=== PATIENT | male | born 1960 | race Caucasian/White ===

== ENCOUNTER 2017-06-21 11:15 | Inpatient (IN) | payer OTHER ==
[2017-06-21] VITALS (16 sets, daily range): BP systolic 133–159; BP diastolic 80–97
[~2017-06-21] VITALS: Ht 165.1 cm; Wt 81.7 kg
[~2017-06-21 11:15] MED LIST: VICODIN 5/500 T1 TAB PO
[2017-06-21] MEDS ORDERED: PANTOPRAZOLE SO40 M1 PO (11:25)
[2017-06-21] MEDS ORDERED: VALSARTAN320 MG PO (11:25)
[2017-06-21] MEDS ORDERED: METOPROLOL SUC100 M2 PO (11:25)
[2017-06-21] MEDS ORDERED: RANITIDINE HCL300 M1 PO (11:25)
[2017-06-21 11:35] LABS: URINE BILIRUBIN - DIPSTICK NEGATIVE (NEG); URINE BLOOD NEGATIVE (NEG)
[2017-06-21 11:38] LABS: HEMOGLOBIN 15.1 g/dL (14.1-18.0); LYMPH # 1.4 K/mm3 (0.7-4.5); LYMPH % 9.4 % (10-50)
--- OUTSIDE RECORDS SUMMARY | 2017-06-21 12:06 | External Medical Summary Rpt | CCD ---
Demographics Preferred Language Honduran Marital Status Unknown Buddhist Affiliation Unknown Race Unknown Ethnic Group Unknown Author Author , JOSH MAKI Address Unknown Phone Immunization No patient found.
--- OUTSIDE RECORDS SUMMARY | 2017-06-21 12:06 | External Medical Summary Rpt ---
Author Author [facility] Geronimo, [employer] Address Unknown Phone Unavailable Results Amylase [Enzymatic activity/volume] in Serum or Plasma Observa Value Referen Units Interpr Notes Date tion ce etation Range Amylase 25 - 115 U/L Normal No Jun 21 [Enzymati informati 2017 c on in 11:25 AM activity/ source volume] data in Serum or Plasma Comprehensive metabolic 2000 panel in Serum or Plasma Observa Value Referen Units Interpr Notes Date tion ce etation Range Albumin/G 1.1 - 1.8 No Low No Jun 21 lobulin informati informati 2017 [Mass on in on in 11:25 AM ratio] in source source Serum or data data Plasma Albumin 3.4 - 5.0 gm/dL Normal No Jun 21 [Mass/vol informati 2016 ume] in on in 11:25 AM Serum or source Plasma data Alkaline 46 - 116 U/L Normal No Jun 21 phosphata informati 2017 se on in 11:25 AM [Enzymati source c data activity/ volume] in Serum or Plasma Bilirubin 0.2 - 1.0 mg/dL High No Jun 21 .total informati 2016 [Mass/vol on in 11:25 AM ume] in source Serum or data Plasma Urea 7 - 18 mg/dL Normal No Jun 21 nitrogen informati 2016 [Mass/vol on in 11:25 AM ume] in source Serum or data Plasma Calcium 8.5 - mg/dL Normal No Jun 21 [Mass/vol 10.1 informati 2016 ume] in on in 11:25 AM Serum or source Plasma data Chloride 98 - 107 mmoL/L Normal No Jun 21 [Moles/vo informati 2017 lume] in on in 11:25 AM Serum or source Plasma data Carbon 21.0 - mmoL/L Normal No Jun 21 dioxide, 32.0 informati 2016 total on in 11:25 AM [Moles/vo source lume] in data Serum or Plasma Creatinin 0.70 - mg/dL Normal No Jun 21 e 1.30 informati 2017 [Mass/vol on in 11:25 AM ume] in source Serum or data Plasma Creatinin 50 - 200 ML/MIN Normal No Jun 21 e renal inform2016 clearance on in 11:25 AM source predicted data by Cockcroft -Gault formula Estimated >60 ML/MIN No REFERENCE Jun 21 informati RANGE: 2017 glomerula on in >60 11:25 AM r source ML/MIN/1. filtratio data 73 SQUARE n rate METERSIf (GF this patient is -A merican, then multiply theresult by 1.210. Globulin 1.3 - 3.2 gm/dL High No Jun 21 [Mass/vol informati 2016 ume] in on in 11:25 AM Serum source data Glucose 74 - 106 mg/dL High No Jun 21 [Mass/vol informati 2016 ume] in on in 11:25 AM Serum or source Plasma data Potassium 3.5 - 5.1 mmoL/L Normal No Jun [id number] [Moles/vo on in 11:25 AM lume] in source Serum or data Plasma Sodium 136 - 145 mmoL/L Normal No Jun 21 [Moles/vo informati 2016 lume] in on in 11:25 AM Serum or source Plasma data Aspartate 15 - 37 U/L Normal No Jun [id number] aminotran on in 11:25 AM sferase source [Enzymati data c activity/ volume] in Serum or Plasma Alanine 12 - 78 U/L Normal No Jun 21 aminotran inform2016 sferase on in 11:25 AM [Enzymati source c data activity/ volume] in Serum or Plasma Protein 6.4 - 8.2 gm/dL Normal No Jun 21 [Mass/vol informati 2016 ume] in on in 11:25 AM Serum or source Plasma data Lipase [Enzymatic activity/volume] in Serum or Plasma Observa Value Referen Units Interpr Notes Date tion ce etation Range Lipase 73 - 393 U/L Normal No Jun 21 [Enzymati informati 2016 c on in 11:25 AM activity/ source volume] data in Serum or Plasma CBC W Auto Differential panel in Blood Observa Value Referen Units Interpr Notes Date tion ce etation Range Basophils 0 - 0.2 K/MM3 Normal No Jun 21 inform2016 [#/volume on in 11:25 AM ] in source Blood by data Automated count Basophils 0.1 - 2.0 % Normal No Jun [id number] leukocyte on in 11:25 AM s in source Blood by data Automated count Eosinophi 0.0 - 0.4 K/mm3 Normal No Jun 21 ls informati 2016 [#/volume on in 11:25 AM ] in source Blood by data Automated count Eosinophi 0.1 - % Normal No Jun 21 ls/100 12.0 inform2016 leukocyte on in 11:25 AM s in source Blood by data Automated count Granulocy 1.3 - 8.0 K/mm3 High No Jun 21 yesy inform2016 [#/volume on in 11:25 AM ] in source Blood by data Automated count Granulocy 37.0 - % High No Jun 21 yesy/100 80.0 inform2016 leukocyte on in 11:25 AM s in source Blood by data Automated count Hematocri 42.0 - % Normal No Jun 21 t [Volume 52.0 informati 2016 on in 11:25 AM Fraction] source of Blood data Hemoglobi 14.1 - g/dL Normal No Jun 21 n 18.0 informati 2016 [Mass/vol on in 11:25 AM ume] in source Blood data Lymphocyt 0.7 - 4.5 K/mm3 Normal No Jun 21 es inform2016 [#/volume on in 11:25 AM ] in source Unspecifi data ed specimen by Automated count Lymphocyt 10 - 50 % Low No Jun 21 es 2016 [#/volume on in 11:25 AM ] in source Unspecifi data ed specimen by Automated count Erythrocy 27 - 31.2 pg High No Jun 21 te mean 2016 corpuscul on in 11:25 AM ar source hemoglobi data n [Entitic mass] Erythrocy 31.8 - g/dl Normal No Jun 21 te mean 35.4 2016 corpuscul on in 11:25 AM ar source hemoglobi data n concentra tion [Mass/vol ume] by Automated count Erythrocy 82.2 - fl Normal No Jun 21 te mean 97.8 2016 corpuscul on in 11:25 AM ar volume source [Entitic data volume] by Automated count Monocytes 0.1 - 1.0 K/mm3 High No Jun 21 inform2016 [#/volume on in 11:25 AM ] in source Blood by data Automated count Monocytes 1.7 - 9.3 % Normal No Oct 23 /100 informati 2016 leukocyte on in 11:25 AM s in source Blood by data Automated count Platelet 7.4 - fl Normal No Jun 21 mean 10.4 2016 volume on in 11:25 AM [Entitic source volume] data in Blood by Automated count Platelets 142 - 424 K/mm3 Normal No Jun 21 informati 2016 [#/volume on in 11:25 AM ] in source Blood data Erythrocy 4.6 - 6.2 M/mm3 Normal No Jun 21 yesy informati 2016 [#/volume on in 11:25 AM ] in source Amniotic data fluid Erythrocy 11.5 - % Normal No Jun 21 te 17.5 informati 2016 distribut on in 11:25 AM ion width source [Entitic data volume] by Automated count Leukocyte 4.8 - K/MM3 High No Jun 21 s 10.8 informati 2016 [#/volume on in 11:25 AM ] in source Blood data
--- OUTSIDE RECORDS SUMMARY | 2017-06-21 12:06 | External Medical Summary Rpt | CCD ---
Author Author JOSH Address Unknown Phone Purpose Continuity of Care Document - 06-21-2017 through 2016
--- OUTSIDE RECORDS SUMMARY | 2017-06-21 12:06 | External Medical Summary Rpt | CCD ---
Author Author [employer] Organization [employer] Address Unknown Phone Unavailable Purpose Continuity of Care Document - through 2016
--- OUTSIDE RECORDS SUMMARY | 2017-06-21 12:06 | External Medical Summary Rpt | CCD ---
Demographics Preferred Language [place] Citizen Marital Status Unknown Christian Affiliation Unknown Race Unknown Ethnic Group Unknown Author Author , JOSH MAKI Address Unknown Phone Immunization No patient found.
--- OUTSIDE RECORDS SUMMARY | 2017-06-21 12:06 | External Medical Summary Rpt | CCD ---
Author Author JOSH Address Unknown Phone [email or web address] Purpose Continuity of Care Document - 06-21-2017 through 2016
--- NOTE | 2017-06-21 12:07 | Emergency Room Report ---
History of Present Illness Time Seen by 1200 Presenting Problem in Triage Pt arrived:Walked Presenting Problem:PT C/O PAIN AROUND HIS UMBILICAL AREA THAT STARTED WEDNESDAY NIGHT. ALSO C/O N/V/D Onset of symptoms date/time:/ or onset unknown for:MEDICAL HX UNKNOWN Treatment Prior to Arrival: MATERIAL EXPEDITOR Provided by: Sepsis Risk Assessment: Temp: 98.2 B/P: 159/97 MAP: 117 Pulse: 86 Resp: 16 Recent fever? N Clinical Suspician of Infection? N Mental Status: 1 - Regular (Normal Baseline) Sepsis Risk:Low Sepsis Risk Have you (or family members/close friends) recently traveled outside the [place]? N If Yes, where/when: Have you had exposure to infectious disease within the past month? N TB? Other? Specify: Periumbilical pain and diminished appetite with vomiting and loose stools for two days, no fever, no blood from above or below, no urinary sx; hx calculi but pain different and now localized to RLQ with exquisite tenderness. Not diabetic. No prior surgeries. Last meal was crackers last night, coffee early this AM. ALLERGIES Coded Allergies: No Known Allergies (06/21/17) Home Medications Reported Medications Metoprolol Succinate (Metoprolol Succinate XL) 100 MG PO DAILY #30 Valsartan 320 MG PO DAILY #30 Pantoprazole Sodium 40 MG PO DAILY #30 Ranitidine Hcl (Ranitidine 300MG) 300 MG PO QHS #60 History Medical History General CAD? No Angina: No VA: No Hypertension? Yes Hyperlipidemia? No CHF? No DVT? No PE? No COPD? No Asthma? No Anemia? No GERD? No Gastric ulcers? No GI Bleed? No Hernia? No Thyroid Problems? No Hypothyroidism? No CVA? No Seizures? No Diabetes? No Renal Insuffiency? No End Stage Renal Disease? No UTI? No Stones? No BPH? No GB Disease: No Nephritic Syndrome? No Asplenia? No Hepatitis? No Sickle Cell Disease? No Arthritis? No Migraines? No Cataracts? No Glaucoma? No MRSA? No HIV? No TB? No Anxiety? No Depression? No Cancer? No More? No Immunization Hx DT/Tetanus UNKNOWN Surgical Hx Previous Surgery?Y Orthopedic Family History Family Hx Diabetes Yes CAD Yes Hypertension Yes Hyperlipidemia Yes Cancer Yes TB No Social History Smoking Hx Smoker: Never Smoker Tobacco: No Packs/day N/A Alcohol Alcohol: Yes Review of Systems All Other Systems Reviewed and Negative Gastrointestinal see HPI Genitourinary denies: no symptoms reported. Physical Exam Vital Signs Vital Signs Date Time Temp Pulse Resp B/P Pulse O2 O2 Flow FiO2 Ox Delivery Rate 06/21 1317 98.4 79 18 148/86 94 ROOM AIR 06/21 1248 98.2 70 20 150/80 94 06/21 1235 20 06/21 1220 98.2 70 20 150/80 94 06/21 1216 70 20 150/80 94 06/21 1204 20 06/21 1122 98.2 86 16 159/97 94 General Appearance normal appearance, WD/WN, no apparent distress Eye Exam - bilateral eye normal exam, bilateral eye PERRL, bilateral eye EOMI Neck normal inspection, non-tender, supple, full range of motion Respiratory Status Yes: trachea midline, chest symmetrical, non tender chest. No: respiratory distress, tender on palpation, use of accessory muscles, pain on inspiration, pain on expiration, productive cough, non productive cough. Lung Sounds bilateral: normal breath sounds, lungs clear. Cardiovascular normal exam, regular rate/rhythm, no peripheral edema, no gallop, no JVD, no murmur Gastrointestinal normal bowel sounds, soft, no organomegaly, no pulsatile mass, guarding (exquitely tender McBurney's), rebound Back normal inspection, no CVA tenderness, no vertebral tenderness, bowel/ bladder continent Extremities normal range of motion Strength 5 Upper Ext (L), 5 Upper Ext (R), 5 Lower Ext (L), 5 Lower Ext (R) Neurologic alert, normal exam, no motor/sensory deficits, oriented x 3 Glascow Coma Scale Glascow Coma Scale Response Value EYE response: 4 Spontaneously 4 MOTOR response: 6 OBEYS 6 VERBAL response: 5 Oriented & Converses 5 Total 15 Skin intact, normal color, warm/dry Medical Decision Making LABS/Meds/Orders Pt receiving controlled substance in ED? No Results/Orders Laboratory Tests 06/21/17 1125: Sodium 139, Potassium 3.6, Chloride 103, Carbon Dioxide 26, BUN 13, Creatinine 0.9, Estimated Creat Clear 104, Estimated GFR (MDRD) 88, Glucose 111 H, Calcium 9.0, Total Bilirubin 1.1 H, AST 18, ALT 35, Alkaline Phosphatase 59, Total Protein 7.6, Albumin 3.6, Globulin 4.0 H, Albumin/Globulin Ratio 0.9 L, Amylase 52, Lipase 140, WBC 14.4 H, RBC 4.83, Hgb 15.1, Hct 45.4, MCV 94.1, RDW 12.9, Plt Count 222, MPV 7.8, Gran % 81.9 H, Gran # 11.8 H, Lymphocytes % 9.4 L, Monocytes % 7.4, Eosinophils % 0.8, Basophils % 0.4, Lymphocytes # 1.4, Monocytes # 1.1 H, Eosinophils # 0.1, Basophils # 0.1, PUBS MCHC 33.3, MCH 31.3 H 06/21/17 1120: Urine Color YELLOW, Urine Appearance CLEAR, Urine pH 6.5, Ur Specific [place] <= 1.005, Urine Protein NEGATIVE, Urine Ketones NEGATIVE, Urine Blood NEGATIVE, Urine Nitrate NEGATIVE, Urine Bilirubin NEGATIVE, Urine Urobilinogen 0.2, Ur Leukocyte Esterase NEGATIVE, Urine RBC NONE, Urine WBC NONE, Ur Squamous Epith Cells 3-5, Urine Bacteria OCC, Urine Glucose NEGATIVE Current Medication Orders Sig/Tonio Start time Last Medication Dose Route Stop Time Status Admin Metoprolol Succinate 100 MG DAILY 06/22 0900 AC PO Pantoprazole Sodium 40 MG DAILY 06/22 900 AC PO Rocuronium [place] 0 .STK-MED ONE 06/21 1328 DC .ROUTE Acetaminophen 1 ML .STK-MED ONE 06/21 1327 DC IV Dexamethasone Sodium 0 .STK-MED ONE 06/21 1327 DC Phosphate .ROUTE Lidocaine HCl 0 .STK-MED ONE 06/21 1327 DC IJ Ondansetron HCl 0 .STK-MED ONE 06/21 1327 DC .ROUTE Propofol 0 .STK-MED ONE 06/21 1327 DC IV Morphine Sulfate 2 MG Q2HP PRN 06/21 1245 AC IV Ondansetron HCl 4 MG Q6HP PRN 06/21 1245 AC IV Sodium Chloride 1,000 ML .Q25H 06/21 124 AC IV Sodium Chloride 10 ML PRN PRN 06/21 1245 AC IV Morphine Sulfate 4 MG ONCE ONE 06/21 1215 DC 06/21 IV 06/21 1216 1235 Ondansetron HCl 4 MG ONCE ONE 06/21 1215 DC 06/21 IV 06/21 1216 1203 Sodium Chloride 1,000 ML .Q1H1M 06/21 1215 DC 06/21 IV 06/21 1315 1205 Sodium Chloride 10 ML PRN PRN 06/21 1215 AC IV 06/22 1201 Sodium Chloride 1,000 ML .STK-MED ONE 06/21 1207 DC IV Ketorolac 30 MG ONCE ONE 06/21 1200 DC 06/21 Tromethamine IV 06/21 1201 1204 Ondansetron HCl 4 MG 06/21 1200 CAN IV Ketorolac 0 .STK-MED ONE 06/21 1157 DC Tromethamine .ROUTE Morphine Sulfate 0 .STK-MED ONE 06/21 1156 DC .ROUTE Ondansetron HCl 0 .STK-MED ONE 06/21 1156 DC .ROUTE Sodium Chloride 10 ML PRN PRN 06/21 1130 AC IV 06/22 1126 Orders Procedure Date/time Status CBC WITH AUTO DIFF 06/22 0600 Active BASIC METABOLIC PROFILE 06/22 0600 Active DIET-NOTHING BY MOUTH 06/21 D Active ADMITTED PT IS ACTUALLY IN BED 06/21 1318 Active Decision to admit 06/[address] ABD/PELVIS REQ 06/21 1127 Active IV SALINE LOCK 06/21 1127 Active URINALYSIS/COMPLETE 06/21 1127 Complete LIPASE 06/21 1127 Complete CBC WITH AUTO DIFF 06/21 1127 Complete CHEM 12 PROFILE 06/21 1127 Complete AMYLASE 06/21 1127 Complete ADMIT PATIENT 06/21 UNK Active ELECTROCARDIOGRAM REQUEST 06/21 UNK Active VITAL SIGNS 06/21 UNK Active Schedule Procedure 06/21 UNK Active IV SALINE LOCK 06/21 UNK Active PREPARE CONSENT 06/21 UNK Active CODE STATUS 06/21 UNK Active PATIENT ACTIVITY ORDER 06/21 UNK Active XRAY/CT/US XRAY/CT/US CT abdomen, pelvis CT interpretation by reviewed by me, discussed w/radiologist Time results known: 1205 CT Results abnormal, t/c from Dr. Quevedo: states appendicitis, final reading to follow Consult MD Physician Consult Time Called 1202 Reason Pt. Condition, Admission, Surgical eval/care Departure Departure Time of Disposition 1206 Disposition Still a Patient Clinical Impression Primary Impression: Appendicitis Qualifiers: Appendicitis type: acute appendicitis Acute appendicitis type: unspecified acute appendicitis type Qualified Code: K35.80 - Unspecified acute appendicitis Condition STABLE ED Critical Care Critical Care No at [id number]
--- OUTSIDE RECORDS SUMMARY | 2017-06-21 12:37 | External Medical Summary Rpt | CCD ---
Author Author , GLYNN MAKI Address Unknown Phone [email or web address] Purpose Continuity of Care Document - 06-21-2017 through 2016 Results Labs Lab Lab Date Result Refere Interp Status Commen Order Detail nces retati t Range on Urinalysis with microscopy (06-21-2017 11:20) Urine 06-21-2 CLEAR CLEAR complet appeara 017 CLEAR L ed nce 11:20 determi nation Urine 06-21-2 NEGATIV NEG complet total 017 E ed bilirub 11:20 NEGATIV in E L detecti on by test Urine 06-21-2 NEGATIV NEG complet blood 017 E ed detecti 11:20 NEGATIV on E L Urine 06-21-2 YELLOW YELLOW complet color 017 YELLOW ed 11:20 L Glucose 06-21-2 = NEG complet ur 017 NEGATIV ed test 11:20 E strip Urine 06-21-2 NEGATIV NEG complet ketones 017 E ed 11:20 NEGATIV detecti E L on by mg/dL automat ed yesy Mucus 06-21-2 NEGATIV NEG complet detecti 017 E ed on in 11:20 NEGATIV urine E L sedimen t by lig Urine 06-21-2 NEGATIV NEG complet nitrite 017 E ed 11:20 NEGATIV detecti E L on by test strip Urine 06-21-2 = 6.5 5.0-8.5 complet pH 017 ed 11:20 Urine 23-2 = NEG complet protein 017 NEGATIV ed 11:20 E mg/dL measure ment by automat ed t Urine 10-23-2 < = 1.005-1 complet specifi 017 1.005 .030 ed c 11:20 gravity measure ment Urine 23-2 0.2 0.2 NEG complet urobili 017 L ed nogen 11:20 E.U./dL detecti on by test str
--- OUTSIDE RECORDS SUMMARY | 2017-06-21 12:37 | External Medical Summary Rpt | CCD ---
Demographics Preferred Language [place] Marital Status Unknown Oriental Orthodox Affiliation Unknown Race Unknown Ethnic Group Unknown Author Author , JOSH MAKI Address Unknown Phone Immunization No patient found.
--- OUTSIDE RECORDS SUMMARY | 2017-06-21 12:37 | External Medical Summary Rpt | CCD ---
Demographics Preferred Language Sri Lankan Marital Status Unknown Yazidism Affiliation Unknown Race Unknown Ethnic Group Unknown Author Author , JOSH MAKI Address Unknown Phone Immunization No patient found.
--- OUTSIDE RECORDS SUMMARY | 2017-06-21 12:37 | External Medical Summary Rpt | CCD ---
Author Author , GLYNN MAKI Address Unknown Phone [email or web address] Purpose Continuity of Care Document - 06-21-2017 [...]
--- NOTE | 2017-06-21 12:48 | HISTORY AND PHYSICAL REPORT ---
History of Present Illness Chief Complaint: abdominal pain History of Present Illness: Patient is a 57-year-old white male, relatively healthy. He states that on 06/19/17, he had developed some vague lower abdominal pain. Became much more severe yesterday. Patient had taken Tylenol. However, his symptoms persisted and he ultimately presented to the emergency department today. Evaluation in the emergency department included CT scan which revealed findings of acute appendicitis. Past Medical History Reports: hypertension. Surgical History Previous Surgery?Y Orthopedic Allergies Coded Allergies: No Known Allergies (06/21/17) Medications: Reported Medications Metoprolol Succinate (Metoprolol Succinate XL) 100 MG PO DAILY #30 Valsartan 320 MG PO DAILY #30 Pantoprazole Sodium 40 MG PO DAILY #30 Ranitidine Hcl (Ranitidine 300MG) 300 MG PO QHS #60 Smoking Hx Tobacco: No Smoker: Never Smoker Type: N/A Packs/day: N/A Are you/the child exposed to second-hand smoke: No Alcohol Alcohol: Yes Hx of Drug Use Drug Use? No Review of Systems Constitutional No: chills. Skin No: abrasions. Immune/allergy No: anaphalaxis. Eyes No: vision loss. ENT No: ear ache. Respiratory No: shortness of air. Cardiovascular No: chest pain. GI Positive for: abdomen, anorexia. (male) No: hematuria. Musculoskeletal No: extremity pain. Heme No: adenopathy. Endocrine No: cold intolerance. Neurological No: change in LOC. Physical Exam Exam General appearance no acute distress, alert Respiratory clear to auscultation Cardiovascular normal heart sounds Abdomen soft Findings/Data His abdomen is soft. He does however have tenderness with voluntary guarding in the RIGHT lower quadrant. There are some findings consistent with positive Rovsing sign. Dx/assessment/plan Problem List 1. Appendicitis Code status: full code Plan: Plan for admission and arrangements to be made for appendectomy. at [id number]
--- NOTE | 2017-06-21 13:05 | RADIOLOGY REPORT PS360 ---
q CT ABD PELVIS W/O CONTRAST HISTORY: UMBILICAL PAIN WITH N/V/D Patient Age: 57 years: Male Ordering Physician: TECHNIQUE: Helical CT scanning performed the abdomen and pelvis with no oral nor IV contrast. Sagittal and coronal reconstructions on CT workstation COMPARISON :Previous CT abdomen March 2016 FINDINGS : Findings of ACUTE APPENDICITIS.: . Prominent fluid-filled dilatation at the proximal appendix and tip of appendix.-Where the fluid-filled appendix dilates up to nearly 14 mm diameter. Prominent Periappendiceal stranding and inflammatory changes, throughout this region. Also 4x 5 mm area of partially calcified appendicolith at mid appendix with appendix dilated proximal to this point.. No perforation. No abscess. Images reviewed with Dr. Bah. Small bowel :. Scattered air-fluid levels in the borderline dilated proximal small bowel likely reflects mild ileus there is an ingested pills or radiopaque material seen proximal small bowel.. Large bowel with minimal stool throughout. Kidneys. No tract obstruction . Right kidney. Small 3 mm nonobstructive calculus lower pole calyx right. Left kidney. Unremarkable ureters unremarkable bilateral. Left adrenal nodule. 14 mm x 12 mm transverse. Although slightly larger and more evident than last years CT, Its very low density supports benign nonfunctioning adenoma follow-up adequate. Lung bases clear,. Liver, spleen, unremarkable on these noncontrast studies. Pancreas appears unchanged since previous studies March 2016.. Slight Generous volume head and body again noted but similar pattern. Pelvis. Moderate size prostate with central calcifications. No pelvic nor retroperitoneal adenopathy IMPRESSION: 1. Acute appendicitis. 2. Low-density left adrenal nodule. Although appears slightly larger than 2016, its CT appearance most compatible with a benign nonfunctioning adenoma. It can be followed
--- NOTE | 2017-06-21 14:16 | RADIOLOGY REPORT PS360 ---
CHEST(2 VIEWS-NOT PORTABLE) Ordering physician: Escobar Bah MD Age: 57 years Male INDICATION: chest symptomsabdominal pain appendicitis PROCEDURE: CHEST(2 VIEWS-NOT PORTABLE) FINDINGS: No prior chest film Lungs moderate expanded but clear with nothing definitely acute. No pneumothorax. No pleural effusion. No focal pneumonia Heart normal size. Normal pulmonary vascularity. . mediastinal structures appear satisfactory. Left tae upper normal prominence Chest wall unremarkable. T-spine intact. IMPRESSION ----- No active disease . Lungs clear
--- NOTE | 2017-06-21 16:01 | Operative Note ---
Surgeon/Diagnoses Surgeon/Planting Machine Operator(s) Date of procedure: 06/21/17 Surgeon: Escobar Bah Diagnoses Pre-op diagnosis: Acute appendicitis Post-op diagnosis Same Procedure Procedure Procedure: Laparoscopic appendectomy Indications: RAMESH THOMAS is a 57 year-old Male with a history of pain. Patient is a 57 -year-old white male, relatively healthy. He states that on 06/19/17, he had developed some vague lower abdominal pain. Became much more severe yesterday. Patient had taken Tylenol. However, his symptoms persisted and he ultimately presented to the emergency department today. Evaluation in the emergency department included CT scan which revealed findings of acute appendicitis. Findings: Acute separative necrotizing appendicitis with probable contained perforation. Procedure Description: Consent was obtained and patient was taken to the operating room. He was given preoperative intravenous antibiotics. He was positioned in a supine position. Gen. anesthesia was induced. Abdomen was prepped and draped in the standard surgical fashion. Subumbilical skin incision was made and while performing abdominal wall lifted the Veress needle was inserted. CO2 pneumoperitoneum was achieved to 15 mmHg. 10/12 mm optical trocar was inserted at the umbilicus. Intraperitoneal contents were visualized. He had 5 mm trocar inserted at the suprapubic location. Additional 5 mm trocar was inserted in the RIGHT upper abdomen. 10 mm laparoscope was replaced with the 5 mm 30 degree laparoscope and inserted through the RIGHT upper abdominal trocar site. Patient was positioned in Trendelenburg and LEFT side down. Appendix was identified. Ileum was adherent as was some fatty tissues due to acute suppurative inflammatory changes. Appendix was mobilized. It was found to be markedly inflamed towards the tip with evidence of necrotizing appendicitis of the tip with possible contained perforation. Mesoappendix was divided with Yann ultrasonic harmonic kannan with care taken to ligate the appendiceal artery in the process. Dissection was carried down to the base of the appendix. Appendix was divided at its base with an endoscopic TED linear cutting stapling device. Appendix was placed within an Endo Catch retrieval device and removed from the peritoneal cavity via the umbilical trocar site which required some stretching of the fascial incision. Pericecal region and pelvis were irrigated and aspirated until clear. There was good hemostasis. Trochars were removed as CO2 pneumoperitoneum was evacuated. Fascia at the umbilicus was closed with multiple interrupted 0 Vicryl sutures. Local anesthetic was infiltrated. Skin incisions were closed with 4-0 Monocryl in a subcuticular fashion. Steri-Strips and clean dry sterile dressings were applied. EBL (ml): 20 Anesthesia: GETA Specimens: Appendix Disposition Disposition: To PACU at 1601
--- NOTE | 2017-06-21 16:05 | Anesthesia Record ---
Anesthesia Record Part I Total IV fluids: 1900 EBL (ml): 10 Urine Output: 200 B/P: 120/84 % SaO2: 95 Pulse: 94 Resps: 16 Temp: 98.4 Patient is: Drowsy, Stable Stable to PACU at: 1600 at 1604
--- NOTE | 2017-06-21 16:05 | Anesthesia Record ---
Anesthesia Record Part II Discharge time: 1630 Destination: Second Floor PACU nurse assessment review? Yes Patient is: Stable Anesthesia complications? No at 1607
[2017-06-21 16:14] LABS: URINE BILIRUBIN - DIPSTICK NEGATIVE (NEG); URINE BLOOD NEGATIVE (NEG)
[2017-06-22] VITALS (7 sets, daily range): BP systolic 111–157; BP diastolic 72–97
[2017-06-22 06:26] LABS: LYMPH # 1.6 K/mm3 (0.7-4.5); LYMPH % 13.7 % (10-50)
[2017-06-22 06:40] LABS: HEMOGLOBIN 12.6 g/dL (14.1-18.0)
--- NOTE | 2017-06-22 07:27 | PHARMACY CLINIC NOTE ---
Patient Demographics Patient Demographics Admission date: 06/21/17 Date: 06/22/17 Time: 07 Allergies Coded Allergies: No Known Drug Intolerances (- 06/21/17) No Known Intolerances (06/21/17) HEIGHT- FT: 5 IN: 5.00 K.733 VTE General Information Labs: Laboratory Tests 06/22 06/21 0610 1125 Hematology Hgb (14.1 - 18.0 g/dL) 12.6 L 15.1 Hct (42.0 - 52.0 %) 38.6 L 45.4 Plt Count (142 - 424 K/mm3) 177 222 Disclaimer The following section includes nursing documentation that has been pulled in for pharmacy review. Patient's VTE score: 1 Patient's VTE Risk: VERY LOW RISK Clinical trial participant? No VTE prophylaxis [id number] VTE prophylaxis ordered? Yes Type of prophylaxis/treatment: RUPERT at 9588
--- NOTE | 2017-06-22 17:06 | SURGEON PROGRESS NOTE ---
Subjective data Subjective data: RAMESH THOMAS is a 57 M .Patient denies complaint of nausea and vomitting.He reports his last pain level as 0 on a 0-10 pain scale. Feeling well without complaints. Assessment findings Assessment Exam General appearance: normal appearance, alert ABD: soft Patient plan Plan: Antibiotics Additional data: Advance diet. Since he had acute necrotizing appendicitis plan to continue postoperative antibiotics longer than 24 hours. Probable DC home tomorrow. at 1706
[2017-06-23 04:30] VITALS: BP 155/102
[2017-06-23 07:08] LABS: HEMOGLOBIN 12.8 g/dL (14.1-18.0); LYMPH # 1.7 K/mm3 (0.7-4.5); LYMPH % 20.9 % (10-50)
--- NOTE | 2017-06-23 07:20 | SURGEON PROGRESS NOTE ---
Subjective data Subjective data: RAMESH THOMAS is a 57 M .Patient denies complaint of nausea and vomitting.He reports his last pain level as 0 on a 0-10 pain scale. No complaints. Feels well. Assessment findings Assessment Exam General appearance: normal appearance, alert ABD: soft Patient plan Plan: DC at 0779
[2017-06-23] MEDS ORDERED: HYDROCODONE/APA1 TA8 PO (07:23)
--- NOTE | 2017-06-23 07:29 | DISCHARGE SUMMARY STANDARD ---
Demographics Admit date: 06/21/17 Discharge date: 06/23/17 History of present illness History of present illness Patient is a 57-year-old white male, relatively healthy. He states that on 06/19/17, he had developed some vague lower abdominal pain. Became much more severe yesterday. Patient had taken Tylenol. However, his symptoms persisted and he ultimately presented to the emergency department today. Evaluation in the emergency department included CT scan which revealed findings of acute appendicitis. Hospital Course Hospital Course: Patient was admitted to the medical surgical floor. Preparations were made for surgical intervention. Shortly thereafter he was taken to the operating room and underwent laparoscopic appendectomy. Please see operative dictation for complete details. He had an acute necrotizing appendicitis. He was admitted postoperatively. He was given Unasyn preoperatively and this was continued postoperatively. He was given a full liquid diet postoperatively which she tolerated without difficulty. The following morning he was feeling well. He still had a mild leukocytosis of 11,000. Given the severely inflamed appendix with acute necrotizing appendicitis plan was made to continue antibiotics. His diet was advanced to a bland diet which he tolerated without difficulty. Following morning his white blood cell count had normalized 8000. Plan was made for discharge home at this time. Discharge diagnoses Problem List 1. Appendicitis Medications Medications: Discharge meds are as noted. Description for Lortab 5 mg (#21) Follow up Follow up in office in: 2 WEEKS with: Escobar Bah MD at 1770
[2017-06-23 08:00] VITALS: BP 155/102
== END 2017-06-23 08:20 | disposition home or self-care (01) | DRG 343 ==
LOC: ER 11:15 → 2ND 12:15 → ER 12:15 → 2ND 12:15
PROVIDERS: Emergency Medicine; Surgery
PROC: 0DTJ4ZZ Resection of Appendix, Percutaneous Endoscopic Approach (ICD-10-PCS; principal; 2017-06-21 14:30)
DX: K35.89 Other acute appendicitis (principal)
CPT/HCPCS: J0131; J2405; J2710

== ENCOUNTER → 2017-07-19 | Outpatient (CLI) | payer OTHER ==
[~2017-07-19] MED LIST changes: +HYDROCODONE/APA1 TA8 PO; +METOPROLOL SUC100 M2 PO; +PANTOPRAZOLE SO40 M1 PO; +RANITIDINE HCL300 M1 PO; +VALSARTAN320 MG PO
[2017-07-19 13:58] LABS: BUN 10 mg/dL (7-18)
[2017-07-19 14:02] LABS: GFR (ESTIMATED) 88 ML/MIN (>60)
== END ==
LOC: LAB 12:22
PROVIDERS: Surgery
DX: K35.3 Acute appendicitis with localized peritonitis (principal)

== ENCOUNTER → 2017-07-26 | Outpatient (CLI) | payer OTHER ==
--- NOTE | 2017-07-26 17:38 | RADIOLOGY REPORT PS360 ---
CT ABD PELVIS W/ CONTRAST CLINICAL INDICATION: Abdominal pain and tenderness, recent appendectomy ABDOMINAL PAIN ORDERING PHYSICIAN: Escobar Bah MD PATIENT AGE: 57 years COMPARISON: 06/21/2017 TECHNIQUE: Axial images obtained with sagittal and coronal reformats. PROCEDURE: Oral Contrast: Redicat IV Contrast: 75 mL's of Isovue-370 . FINDINGS: Lower thorax: No acute finding ABDOMEN: Liver: No masses or biliary dilatation. Gallbladder: Nondistended. No radio opaque stones. Pancreas: No masses or peripancreatic fluid collections. Spleen: Unremarkable. Adrenals: 9 mm isodense left adrenal nodule unchanged Kidneys/ureters: Small bilateral renal cortical cysts. No hydronephrosis or obstructing renal or ureteral calculus Stomach bowel: Nondistended. No obvious mass or thickening. Appendix: Status post appendectomy. No evidence of abscess. PELVIS: Reproductive: Unremarkable Bladder: Nondistended. No obvious stones or masses. ABDOMEN & PELVIS: Peritoneum: No abnormal fluid collections. No obvious inflammatory changes. No free air. Abdominal wall: There is a small umbilical hernia containing fat Lymph nodes: No enlarged lymph nodes apparent. Vasculature: No evidence of abdominal aortic aneurysm. No retroperitoneal hemorrhage evident. Bones: No acute fracture IMPRESSION: 1. No acute abdominal or pelvic findings. 2. Status post appendectomy with no evidence of abscess or other focal inflammatory change. 3. Small umbilical hernia containing fat
== END ==
LOC: RAD 09:24
DX: K35.3 Acute appendicitis with localized peritonitis (principal); R10.9 Unspecified abdominal pain; Z98.890 Other specified postprocedural states
CPT/HCPCS: Q9967